=== PATIENT | female | born 1985 | race Hispanic/Latino ===

== ENCOUNTER 2017-07-13 21:34 | Emergency (ER) | payer OTHER ==
[2017-07-13] MEDS ORDERED: Dexamethasone 4 mg/ml Vial ONE (21:50)
[2017-07-13] MEDS ORDERED: Ketorolac Tromethamine 60 MG/2 ML VIAL ONE (21:50)
== END 2017-07-13 23:10 | disposition home or self-care (01) ==
LOC: ERS 21:34
DX: J02.0 Streptococcal pharyngitis (principal); F41.9 Anxiety disorder, unspecified
CPT/HCPCS: 96372; J1100; J1885

== ENCOUNTER 2018-12-15 14:33 | Emergency (ER) | payer OTHER, SELFPAY ==
[2018-12-15 15:08] LABS: Hemoglobin 15.6 g/dL (12.0-16.0); Mean Corpuscular HGB CONC 34.7 g/dL (32.0-36.0); Mean Corpuscular Hemoglobin 30.4 pg (27.0-31.0); Mean Corpuscular Volume 87.5 fL (78.0-98.0); Mean Platelet Volume 7.4 fL (7.4-10.4); Platelet Count 342 thou/uL (130-400); RBC Distribution Width 11.4 % (11.5-14.5); Red Blood Cell (RBC) Count 5.13 mill/uL (4.20-5.40); White Blood Cell (WBC) Count 13.5 thou/uL (4.8-10.8)
--- NOTE | 2018-12-15 15:08 | RAD ---
XR Chest 1 View Portable History: [Chest pain] Comparison: Radiograph 2014 Findings: The lungs are clear. No pneumothorax or effusion. Cardiac silhouette and mediastinal contou rs are within normal limits. Impression: No acute intrathoracic abnormality.
[2018-12-15 15:20] LABS: Band 5 % (5-11); Lymphocytes 45 % (21-51); MDiff Complete? YES; Monocytes 2 % (0-10); Neutrophil 48 % (42-75); Platelet Morphology Comment Appears Adequate; RBC Morphology Normal
[2018-12-15 15:34] LABS: ALT (SGPT) 43 U/L (8-55); AST (SGOT) 24 U/L (5-34); Albumin 3.9 g/dL (3.5-5.0); Alkaline Phosphatase 136 U/L (40-150); Anion Gap 16 mmol/L (10-20); BUN (Urea Nitrogen) 11 mg/dL (7.0-18.7); Bilirubin, Total 0.3 mg/dL (0.2-1.2); CK (CPK) 48 U/L (29-168); Calc. Creatinine Clearance 0 mL/min (70-130); Calcium 9.4 mg/dL (7.8-10.44); Carbon Dioxide 20 mmol/L (22-29); Chloride 102 mmol/L (98-107); Estimated GFR-MDRD 87; Glucose 274 mg/dL (70-105); Lipase 32 U/L (8-78); Potassium 4.5 mmol/L (3.5-5.1); Protein, Total 7.9 g/dL (6.0-8.3); Sodium 133 mmol/L (136-145)
[2018-12-15] MEDS ORDERED: Nitroglycerin 0.4 MG TAB 1 EACH ONE (15:35)
[2018-12-15] MEDS ORDERED: Aspirin Chewable 81 MG TAB ONE (15:35)
[2018-12-15] MEDS ORDERED: Lorazepam 2 MG/ML VIAL ONE (16:09)
[2018-12-15] MEDS ORDERED: Pantoprazole 40 MG VIAL ONE ×2 (16:09→16:11)
[2018-12-15 17:54] LABS: Bilirubin Negative (Negative); Blood, Urine Negative (Negative); Clarity CLEAR (Clear); Glucose, Urine (Dipstick) >=1000 mg/dL (Negative); Leukocyte Negative (Negative); Nitrite Negative (Negative); Protein, Urine (Dipstick) Negative (Neg-Trace); Specific Gravity, Urine 1.033 (1.002-1.036); Urobilinogen 0.2 mg/dL (0.2-1.0); pH, Urine 5.5 (5.0-9.0)
--- NOTE | 2018-12-20 15:31 | EKG ---
Test Reason : CHEST PAIN Blood Pressure : / mmHG Vent. Rate : 095 BPM Atrial Rate : 095 BPM P-R Int : 118 ms QRS Dur : 076 ms QT Int : 352 ms P-R-T Axes : 019 013 032 degrees QTc Int : 442 ms Normal sinus rhythm Normal ECG Confirmed by JULIET KNUTSON ([id number]), editor publications SHELL KUMARI ([id number]) on 12/20/2018 3:30:50 PM Referred By: Confirmed By:JULIET KNUTSON
--- NOTE | 2018-12-20 15:31 | EKG ---
Test Reason : CP Blood Pressure : / mmHG Vent. Rate : 083 BPM Atrial Rate : 083 BPM P-R Int : 122 ms QRS Dur : 082 ms QT Int : 390 ms P-R-T Axes : 013 006 018 degrees QTc Int : 458 ms Normal sinus rhythm Normal ECG Confirmed by JULIET KNUTSON ([id number]), technical writer and editor SHELL KUMARI ([id number]) on 12/20/2018 3:31:03 PM Referred By: EAMON Confirmed By:JULIET KNUTSON
== END 2018-12-15 19:08 | disposition home or self-care (01) ==
LOC: ERS 14:33
DX: R07.89 Other chest pain (principal); E11.9 Type 2 diabetes mellitus without complications; F41.9 Anxiety disorder, unspecified
CPT/HCPCS: 36415; 71045; 80053; 81003; 82550; 83690; 83880; 84484; 85025; 93005; 96374; 96375; C9113; J2060

== ENCOUNTER 2018-12-30 19:28 | Emergency (ER) | payer OTHER ==
[2018-12-30 20:09] LABS: Bilirubin Negative (Negative); Blood, Urine Small (Negative); Clarity CLEAR (Clear); Glucose, Urine (Dipstick) >=1000 mg/dL (Negative); Leukocyte Small (Negative); Nitrite Negative (Negative); Protein, Urine (Dipstick) Negative (Neg-Trace); Specific Gravity, Urine 1.044 (1.002-1.036); Urobilinogen 0.2 mg/dL (0.2-1.0)
[2018-12-30 20:11] LABS: Bacteria/HPF Rare-Few HPF (None Seen); Hyaline Casts/LPF 0-3 HYALINE CAST LPF (0-3 Hyaline); Pathc Cast-AUWi Flag 0.13 (0-2.49); Squamous Epithelial 0-3 HPF (0-3); WBC/HPF 21-50 HPF (0-3)
[2018-12-30 21:28] LABS: Pregnancy Test - Urine (BHCG) Negative (Negative); Pregu Control Background? CLEAR/WHITE (CLR/WHITE); Pregu Control Bar Appear? YES (CONTROL BAR); Specific Gravity 1.044 (1.002-1.036)
[2018-12-30] MEDS ORDERED: cefTRIAXone\\ROCEPHIN 250 MG VIAL ONE (21:28)
[2018-12-30] MEDS ORDERED: Azithromycin 250 MG TAB ONE (21:28)
[2018-12-30] MEDS ORDERED: Lidocaine 1% PF 5 ML VIAL ONE (21:28)
== END 2018-12-30 22:40 | disposition home or self-care (01) ==
LOC: ERS 19:28
DX: B00.9 Herpesviral infection, unspecified (principal); N76.0 Acute vaginitis; B37.3 Candidiasis of vulva and vagina; E11.65 Type 2 diabetes mellitus with hyperglycemia; F41.9 Anxiety disorder, unspecified
CPT/HCPCS: 36416; 81003; 81015; 81025; 87086; 87480; 87491; 87510; 87591; 87660; 96372; J0696; J2001